=== PATIENT | male | born 1995 | race Two or more races ===

== ENCOUNTER 2017-03-11 10:56 | Emergency (ER) | payer MEDICAID ==
[~2017-03-11] VITALS: Ht 185.4 cm; Wt 108.9 kg
[2017-03-11 11:00] VITALS: BP 120/80
[2017-03-11] MEDS ORDERED: HYDROmorphone HCL 2 MG/ML VL IM ONE (11:15)
[2017-03-11] MEDS ORDERED: ONDANSETRON HCL 4 MG/2 ML VIAL IM ONE (11:15)
[2017-03-11] MEDS ORDERED: METHOCARBAMOL 500 MG TAB PO ONE (11:15)
== END 2017-03-11 13:35 | disposition home or self-care (01) ==
LOC: ER 10:56 → EDBD 10:56 → ER 13:35
DX: M47.896 Other spondylosis, lumbar region (principal); Z88.0 Allergy status to penicillin
CPT/HCPCS: 72131; 96372; 99284; J1170; J2405

== ENCOUNTER 2017-08-10 20:49 | Emergency (ER) | payer MEDICAID ==
[~2017-08-10] VITALS: Ht 185.4 cm; Wt 106.1 kg
[2017-08-10 21:26] VITALS: BP 130/62
[2017-08-10 21:56] LABS: Basophils # (auto) 0 uL; Basophils % (auto) 0.4 % (0.0-2.0); Eosinophils # (auto) 0.1 uL; Eosinophils % (auto) 0.8 % (0.0-7.0); Hematocrit 49.1 % (41.0-53.0); Lymphocytes # (auto) 1.8 uL; Mean Corpuscular Hemoglobin 29.7 pg (28.0-32.0); Mean Corpuscular Hgb Conc. 34.6 g/dL (32.0-36.0); Mean Corpuscular Volume 85.9 fL (80.0-100.0); Monocytes # (auto) 0.8 uL; Monocytes % (auto) 8.3 % (0.0-12.0); Neutrophils # (auto) 6.8 uL; Neutrophils % (auto) 71.5 % (37.0-80.0); Nucleated Red Blood Cells % 0.1 %; Platelet Count (auto) 188 10^3/uL (140-450); Red Blood Cells 5.72 10^6/uL (4.5-5.90); Red Cell Distribution Width 13.4 % (11.8-14.3); White Blood Cell 9.6 10^3/uL (4.4-10.8)
[2017-08-10 22:15] LABS: Alanine Aminotransferase 72 U/L (16-61); Albumin 4.3 g/dL (3.4-5.0); Alkaline Phosphatase 94 U/L (45-117); Anion Gap 8 (5-15); Aspartate Aminotransferase 30 U/L (15-37); BUN/Creatinine Ratio 17.5; Bilirubin, Total 0.4 mg/dL (0.2-1.0); Blood Urea Nitrogen 14 mg/dL (7-18); Carbon Dioxide 26 mmol/L (21-32); Chloride 104 mmol/L (98-107); GFR African American 160 mL/min; GFR Non-African American 132 mL/min; Glucose 87 mg/dL (74-106); Potassium 4.3 mmol/L (3.5-5.1); Sodium 138 mmol/L (136-145); Total Protein 8.9 g/dL (6.4-8.2)
[2017-08-10 22:21] LABS: Urine Bacteria NONE SEEN /hpf (None Seen); Urine Blood Negative /uL (Negative); Urine Specific Gravity 1.016 (1.001-1.035); Urine WBC <1 /hpf (0 - 3)
== END 2017-08-11 07:19 | disposition left against medical advice (07) ==
LOC: ER 20:49
DX: R07.89 Other chest pain (principal); Z53.21 Procedure and treatment not carried out due to patient leaving prior to being seen by health care provider
CPT/HCPCS: 36415; 71046; 80053; 81001; 84484; 85025

== ENCOUNTER 2019-02-09 03:01 | Emergency (ER) | payer SELFPAY ==
[~2019-02-09] VITALS: Ht 185.4 cm; Wt 108.9 kg
[2019-02-09] MEDS ORDERED: TETANUS-DIPTH-ACEL PERTUSSIS 0.5ML SYRG IM ONE (08:00)
[2019-02-09 08:46] VITALS: BP 128/72
== END 2019-02-09 09:14 | disposition home or self-care (01) ==
LOC: ER 03:01 → EDBD 03:01 → ER 09:14
DX: S80.02XA Contusion of left knee, initial encounter (principal); M62.838 Other muscle spasm; Z88.0 Allergy status to penicillin; V43.62XA Car passenger injured in collision with other type car in traffic accident, initial encounter; Y93.89 Activity, other specified; Y99.8 Other external cause status; Y92.410 Unspecified street and highway as the place of occurrence of the external cause
CPT/HCPCS: 70450; 71045; 72125; 73564; 90471; 90715

== ENCOUNTER 2025-01-10 12:07 | Emergency (ER) | payer MEDICAID, OTHER ==
[~2025-01-10] VITALS: Ht 185.4 cm; Wt 131.2 kg
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
[2025-01-10 13:54] VITALS: BP 152/71; PULSE 86; RESP 18; TEMP 98.1; O2SAT 96
== END 2025-01-10 14:01 | disposition home or self-care (01) ==
LOC: ER 12:14
DX: T75.4XXA Electrocution, initial encounter (principal); F12.90 Cannabis use, unspecified, uncomplicated; F10.90 Alcohol use, unspecified, uncomplicated; E66.9 Obesity, unspecified; Z88.0 Allergy status to penicillin; Z68.38 Body mass index [BMI] 38.0-38.9, adult; Y90.9 Presence of alcohol in blood, level not specified; W86.8XXA Exposure to other electric current, initial encounter; Y93.89 Activity, other specified; Y92.89 Other specified places as the place of occurrence of the external cause; Y99.8 Other external cause status